=== PATIENT | female | born 1940 | race Caucasian/White ===

== ENCOUNTER 2018-02-13 06:46 | Inpatient (IN) | payer MEDICARE, OTHER ==
[2018-02-02 09:18] LABS: ABSOLUTE BASOPHILS 0.1 thou/uL (0.0-0.2); ABSOLUTE EOSINOPHILS 0.2 thou/uL (0.0-0.7); ABSOLUTE MONOCYTES 0.5 thou/uL (0.0-1.2); ABSOLUTE NEUTROPHILS 4.1 thou/uL (1.6-8.1); BASOPHILS 1.1 %; EOSINOPHILS 1.9 %; HEMATOCRIT 43.3 % (37.0-47.0); HEMOGLOBIN 14.5 gm/dL (12.0-15.0); LYMPHOCYTES 44.4 %; MCH 29.1 pg (26.0-34.0); MCHC 33.5 g/dL (28.0-37.0); MCV 86.8 fL (80.0-100.0); MONOCYTES 6.2 %; MPV 9.1 fl. (7.2-11.1); NUCLEATED RBCS 0 /100WBC; PLATELET COUNT* 231 thou/uL (150-400); POLYS 46.4 %; RBC 4.99 mil/uL (4.20-5.00); RDW-CV 13.8 % (10.5-14.5); WBC 8.9 thou/uL (4.0-11.0)
[2018-02-02 09:33] LABS: APTT 27.5 Seconds (25.0-31.3)
[2018-02-02 09:51] LABS: ALBUMIN 4.2 g/dL (3.4-5.0); POTASSIUM 3.8 mmol/L (3.5-5.1); TOTAL BILIRUBIN 0.5 mg/dL (<0.1-1.0); TOTAL PROTEIN 7.1 g/dL (6.4-8.2)
[2018-02-02 10:21] LABS: ESR (SEDRATE) 7 mm/hr (0-30)
--- NOTE | 2018-02-02 16:46 | EKG ---
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[employer]: : 1940 Requested By: Roni You Order Number: [id number] Reading MD: Austen Maier Measurements Intervals [place] Rate: 69 P: 56 MA: 150 QRS: 41 QRSD: 85 T: 42 QT: 402 QTc: 431 Interpretive Statements Sinus rhythm Low voltage, precordial leads Compared to ECG 03/10/2017 09:23:28 Low QRS voltage now present ST (T wave) deviation no longer present Electronically Signed On 02-02-2018 16:46:44 CDT by Austen Maier [email or web address] <ELECTRONICALLY SIGNED> By: Austen Maier MD, [facility] 02/02/18 1646 5 5 Austen Maier MD, FACC /EPI
[2018-02-02 23:07] LABS: GLYCOHEMOGLOBIN (HGB A1C) 5.4 % (4.8-5.6)
[~2018-02-13] VITALS: Ht 147.3 cm; Wt 97.5 kg
[~2018-02-13 06:46] MED LIST: ALEVE220 MG PO; ELIQUIS2.5 MG PO; LASIX 40 MG TAB40 M2 PO; METAMUCIL1 EAC1 PO; MILK OF MA2400 MG/10 PO; MOBIC15 MG PO; MULTIPLE VITAM1 EAC2 PO; OMEPRAZOLE40 MG PO; OXYCODONE HCL 55 MG PO; PAROEX473 ML PO; SPIRIVA INH
[2018-02-20 08:15] VITALS: BP 137/68
[2018-02-20] MEDS ORDERED: MILK THISTLE175 M1 PO (10:50)
[2018-02-20] MEDS ORDERED: VIT D3 PO (10:51)
[2018-02-20] MEDS ORDERED: GARLIC OIL1000 MG PO (10:51)
[2018-02-20] MEDS ORDERED: ASPIR 8181 MG PO (10:52)
[2018-02-20] MEDS ORDERED: OCUVITE TABLET1 EAC1 PO (10:52)
[2018-02-20] MEDS ORDERED: B2 (10:53)
[2018-02-20] MEDS ORDERED: SUPER B COMPLE150 MG PO (10:53)
[2018-02-20] MEDS ORDERED: OSTEO BI-FLEX1 EAC1 PO (10:54)
[2018-02-20] MEDS ORDERED: CENTRUM SILVER1 EAC4 PO (10:54)
[2018-02-20 12:00] VITALS: BP 111/77
[2018-02-20 15:00] VITALS: BP 132/50
[2018-02-20 20:00] VITALS: BP 146/55
[2018-02-21] VITALS: BP 104/42
[2018-02-21 05:38] LABS: HEMATOCRIT 35.7 % (37.0-47.0)
[2018-02-21 07:07] LABS: HBsAG-EMPLOYEE EXPOSURE Negative (Negative)
[2018-02-21 08:21] VITALS: BP 117/50
--- NOTE | 2018-02-21 13:12 | OP ---
[address] [address] OPERATIVE REPORT Name: ESA JOSEPH Room: [address] IN .R.#: [id number] Admission: 02/20/18 Attend Phys: Yesi Ivey Discharge: Date of : 42 Report #: [id number] THIS REPORT FOR: //name// CC: Roni Hernandez DATE OF SERVICE: 02/20/2018 PREOPERATIVE DIAGNOSIS: Advanced degenerative joint disease, left knee. POSTOPERATIVE DIAGNOSIS: Advanced degenerative joint disease, left knee. PROCEDURE: Left total knee arthroplasty. SURGEON: Roni You DO. VET ASSISTANT: Rajendra Perry DO. ESTIMATED BLOOD LOSS: 200 mL. TOURNIQUET TIME: Approximately 1 hour. COMPLICATIONS: None. DRAINS: None. SPECIMEN REMOVED: None. ANESTHESIA: General. CONDITION OF PATIENT: Stable to PACU. ORTHOPEDIC IMPLANTS: 1. Size 6 cruciate retained femur. 2. Size D tibial baseplate. 3. An 11 mm medial congruent spacer. 4. A 29 mm patella. 5. Two bags [place] bone cement plain. INDICATIONS OF PROCEDURE: The patient is a pleasant 77-year-old female seen in my clinic regarding bilateral knee pain. She has had for quite some time. She unfortunately failed conservative treatment including anti-inflammatory medications and steroid injections. X-rays were consistent with severe end-stage degenerative joint disease. Due to failed conservative treatment, I discussed potential benefit of left total knee arthroplasty. She had the right [facility] [address] [place] [address] OPERATIVE REPORT Name: ESA JOSEPH Room: [address] IN ..#: [id number] Admission: 02/20/18 Attend Phys: Yesi Ivey Discharge: Date of : 42 Report #: [id number] one done previously and did quite well with this. I discussed procedure, risks, benefits, complications and indications in detail with her. Risks discussed include but not limited to infection, neurovascular injury, arthrofibrosis, hardware failure, fracture, need for further surgery, continued or worsened pain, DVT, PE and anesthesia complications. She did express understanding and wished to proceed with surgery. PROCEDURE IN DETAIL: After getting consent was obtained, the patient was taken to the operative suite and placed in supine position on the operating room table. She was given the benefit of general anesthesia. A well-padded tourniquet was placed on left upper thigh. Left leg was sterilely prepped and draped in usual fashion. Preop timeout was obtained to confirm the correct patient, procedure and operative site. Surgery began with a standard anterior knee incision after inflation of the tourniquet to 300 mmHg. Sharp dissection was taken down to the level of capsule. A new knife was used and a medial parapatellar arthrotomy was performed. The patella was everted and the knee was exposed. She had severely eburnated bone throughout all 3 compartments with osteophytes throughout. At this time, a femoral drill was used to open the femoral canal. T-handle and intramedullary kelli were placed, measuring 5-degree valgus cut. Distal femur cut was made through the captured block. An extra 2 mm cut was taken due to preoperative extension lag. The external tibial guide was then utilized, measuring at 10 mm off the high lateral side. Proximal tibial cut was then made through the captured block. The knee was again flexed. AP sizer was placed on the distal femur, this measured a size 6. Two agricultural aircraft pilot holes were drilled in 3 degrees of external rotation. The size 6, 4-in-1 cutting block was then pinned in place. Anterior and posterior condylar cuts were then made as well as chamfer cuts. Posterior osteophytes were removed with a curved osteotome and rongeur. Proximal tibia was then exposed, this measured a size D. A size D tibial trial was placed basing rotation off the medial third of the tibial tubercle and middle of talus. The trial femur was placed. The size 10 spacer was placed. Knee was taken through range of motion. She had full flexion/extension with stable varus valgus testing. The patella was everted. A posterior patellar cut was made using freehand technique, this measured size 29. Three peg holes were drilled, size 29 button was placed. Knee was taken through range of motion and the patella did track well. At this time, the trial femur and spacer removed. Proximal tibia was opened with a drill and punch. All trial components were removed. The knee was again thoroughly irrigated with pulsatile lavage and dried with clean lap sponge. The final components were opened and cement was mixed, placed on final components and exposed bone. These were then packed into place. Excess cement was removed. A size 12 spacer was placed. The knee was taken through extension. Axial compression was applied and the cement hardened. Once cement hardened, trial reduction was performed and a final size 11 spacer was chosen. This was placed on a clean tibial tray locked in place. Knee was taken through final range of motion. She had full [facility] [address] [place] [address] OPERATIVE REPORT Name: ESA JOSEPH Room: [address] IN [facility]#: [id number] Admission: 02/20/18 Attend Phys: Yesi Ivey Discharge: Date of : 42 Report #: [id number] flexion and extension with stable varus valgus testing with good patellar tracking with equal flexion and extension gaps. The tourniquet was allowed to deflate at 1 hour. Hemostasis achieved with electrocautery and direct pressure. Ortho cocktail was injected. Knee was again thoroughly irrigated. Capsular tissue closed with #1 Vicryl in [id number] fashion. Subcutaneous tissue closed with 2-0 Vicryl in inverted interrupted fashion followed by felipe on the skin. Sterile dressing was applied in the form of Mepilex silver dressing and NAOMI hose. She did tolerate the procedure well without complications. She was taken to recovery room in stable condition. All needle and sponge counts correct x 2 at the end of procedure. Should be admitted postoperatively for pain control and physical therapy, expected 2 midnight stay, will begin appropriate postoperative DVT prophylaxis and analgesia. <ELECTRONICALLY SIGNED> By: Denver Dior DO 02/21/18 1312 [id number] [id number] You DO /nt
[2018-02-21 14:01] VITALS: BP 117/50
[2018-02-22 05:04] LABS: HEMATOCRIT 38.5 % (37.0-47.0); HEMOGLOBIN 12.7 gm/dL (12.0-15.0)
[2018-02-22 07:50] VITALS: BP 152/67
[2018-02-22 16:07] VITALS: BP 148/62
[2018-02-22 20:30] VITALS: BP 136/61
[2018-02-23 08:00] VITALS: BP 133/62
[2018-02-23 17:47] VITALS: BP 117/42
[2018-02-23 20:30] VITALS: BP 120/48
[2018-02-24 09:00] VITALS: BP 105/50
[2018-02-24] MEDS ORDERED: ELIQUIS2.5 MG PO (10:51)
[2018-02-24] MEDS ORDERED: HYDROCODON-ACE1 EAC7 PO (10:52)
[2018-02-24] MEDS ORDERED: NEURONTIN 300300 M1 PO (10:52)
[2018-02-24] MEDS ORDERED: ASPIRIN325 PO (10:54)
== END 2018-02-24 14:29 | disposition home health service (06) | DRG 470 ==
LOC: M.PRE 06:46 → M.TBA 02-20 08:39 → M.3W 02-20 08:39 → M.PRE 02-20 13:40 → M.3W 02-20 14:24
PROVIDERS: Orthopaedic Surgery; Specialist; ADMIT Internal Medicine
PROC: 0SRD0J9 Replacement of Left Knee Joint with Synthetic Substitute, Cemented, Open Approach (ICD-10-PCS; principal; 2018-02-20)
DX: M17.12 Unilateral primary osteoarthritis, left knee (principal); Z68.41 Body mass index [BMI] 40.0-44.9, adult; Z96.651 Presence of right artificial knee joint; E66.01 Morbid (severe) obesity due to excess calories; Z88.8 Allergy status to other drugs, medicaments and biological substances; Z90.49 Acquired absence of other specified parts of digestive tract; Z79.899 Other long term (current) drug therapy

== ENCOUNTER → 2018-07-06 | Outpatient (CLI) | payer MEDICARE, OTHER ==
[~2018-07-06] MED LIST changes: +ASPIR 8181 MG PO; +ASPIRIN325 PO; +B2; +CENTRUM SILVER1 EAC4 PO; +GARLIC OIL1000 MG PO; +HYDROCODON-ACE1 EAC7 PO; +MILK THISTLE175 M1 PO; +NEURONTIN 300300 M1 PO; +OCUVITE TABLET1 EAC1 PO; +OSTEO BI-FLEX1 EAC1 PO; +SUPER B COMPLE150 MG PO; +VIT D3 PO
== END ==
LOC: M.RAD 06-28 09:00
DX: M85.80 Other specified disorders of bone density and structure, unspecified site (principal); E28.39 Other primary ovarian failure; Z78.0 Asymptomatic menopausal state

== ENCOUNTER → 2019-01-24 | Outpatient (CLI) | payer MEDICARE, OTHER | LOC: M.RAD 10:41 | DX: Z12.31 Encounter for screening mammogram for malignant neoplasm of breast (principal) ==